=== PATIENT | male | born 1930 | race Caucasian/White ===

== ENCOUNTER 2016-08-29 09:08 | Outpatient (CLI) | payer MEDICARE, OTHER ==
[2015-11-28 15:20] VITALS: BP 146/78
== END 2016-08-29 09:10 ==
LOC: LAB 09:08
PROVIDERS: ATTEND Internal Medicine
DX: E11.9 Type 2 diabetes mellitus without complications (principal)
CPT/HCPCS: 83036

== ENCOUNTER 2016-08-30 09:24 | Emergency (ER) | payer MEDICARE, OTHER ==
[2016-08-30] MEDS ORDERED: OXYMETAZOLINE HCL 0.05% NASAL SPRAY NS ONE (10:02)
--- NOTE | 2016-08-30 10:20 | ED Physician Documentation ---
Epistaxis - HISTORIAN Historian: patient, spouse - HPI Stated Complaint: nose bleed Chief Complaint: Epistaxis Additional Information: epistaxis onset yest pm-never heavy but intermittenly persistent-very minimal now. has hx of blood dyscrasia-dx uncertain-no massive bleedindg ever - no gi bleed. Onset: days ago (yest pm intermittent - slight) Timing: still present, better Location: left Severity: mild Associated Symptoms: denies: recent injury, recent illness Further Comments: yes (blood dyscrasia) - ROS MS/SKIN/LYMPH: other (some bruising) EYES/ENT: none GI/: denies: black stool, problems urinating CVS/RESP: chest pain, difficulty breathing NEURO/PSYCH: denies: dizziness, anxiety - PAST HX Past History: occasional nosebleeds, hypertension, other (un dx blood dyscrasia) Allergies/Adverse Reactions: Allergies Allergy/AdvReac Type Severity Reaction Status Date / Time Penicillins Allergy Verified 08/30/16 09:45 Sulfa (Sulfonamide Allergy Verified 08/30/16 09:45 Antibiotics) Home Medications: Ambulatory Orders Medication Instructions Recorded Acetaminophen [Tylenol] 650 mg PO PRN PRN 11/28/15 Famotidine [Famotidine] 40 mg PO AM 11/28/15 Finasteride [Finasteride] 5 mg PO DAILY 11/28/15 Folic Acid [Folvite] 1 mg PO DAILY 11/28/15 Insulin Aspart [Novolog Flexpen] 2 unit SQ TID 11/28/15 Insulin Glargine,Hum.rec.anlog 11 units SQ DAILY 11/28/15 [Lantus Solostar] Levothyroxine Sodium [Synthroid] 112 mcg PO DAILY 11/28/15 Lisinopril [Lisinopril] 5 mg PO DAILY 11/28/15 Metformin HCl [Glucophage] 1,000 mg PO BID 11/28/15 Multivitamin [Tab-A-Laura] 1 each PO DAILY 11/28/15 Tamsulosin HCl [Tamsulosin HCl] 0.4 mg PO DAILY 11/28/15 - SOCIAL HX Smoking History: non-smoker Alcohol Use: none Drug Use: none - FAMILY HX Family History: No - VITAL SIGNS Vital Signs: Vital Signs Temp Pulse Resp BP Pulse Ox 84 16 163/59 100 08/30/16 09:33 08/30/16 09:33 08/30/16 09:33 08/30/16 09:33 - REVIEWED ASSESSMENTS Nursing Assessment Reviewed: Yes Vitals Reviewed: Yes ED Results Lab/Radiology - Orders Orders: ED Orders Category Date Time Status BMP Routine Lab 08/30/16 Ordered CBC/PLATELET/DIFF Routine Lab 08/30/16 Ordered PT-INR Routine Lab 08/30/16 Ordered PTT Routine Lab 08/30/16 Ordered Oxymetazoline HCl [Afrin 0.05%] Med 08/30/16 10:02 Discontinued 30 spray NS .STK-MED ONE Epistaxis Physical Exam - EXAM General Appearance: mild distress. No: anxious Nose: nml inspection. No: mucosa nml (sl red w/kiesselbachs plexus bleed - clot att w/very min bleeding if at all at present) Head/Neck: atraumatic Eyes/Ears: eyes nml inspection Mouth: lips nml, gums nml, pharynx nml Neuro/Psych: oriented x3, neuro intact, mood/affect nml. No: motor loss, sensory loss, depressed mood/affect Respiratory: no resp distress, chest non-tender, breath sounds normal CVS: reg rate & rhythm, heart sounds normal Abdomen: non-tender. No: swelling Skin: nml color, no skin rash, other (some eccymosis eg playback operator). No: pallor , cyanosis, skin rash, ecchymosis, petechiae Discharge Clincal Impression: Epistaxis, recurrent Referrals: Mark Sidhu MD [Primary Care Provider] - 2 Days Home Medications: Ambulatory Orders Acetaminophen [Tylenol] 650 mg PO PRN PRN 11/28/15 Famotidine [Famotidine] 40 mg PO AM 11/28/15 Finasteride [Finasteride] 5 mg PO DAILY 11/28/15 Folic Acid [Folvite] 1 mg PO DAILY 11/28/15 Insulin Aspart [Novolog Flexpen] 2 unit SQ TID 11/28/15 Insulin Glargine,Hum.rec.anlog [Lantus Solostar] 11 units SQ DAILY 11/28/15 Levothyroxine Sodium [Synthroid] 112 mcg PO DAILY 11/28/15 Lisinopril [Lisinopril] 5 mg PO DAILY 11/28/15 Metformin HCl [Glucophage] 1,000 mg PO BID 11/28/15 Multivitamin [Tab-A-Laura] 1 each PO DAILY 11/28/15 Tamsulosin HCl [Tamsulosin HCl] 0.4 mg PO DAILY 11/28/15 Comments: lab to pt/ to give to hematologists sunday Condition: Good Disposition: HOME, SELF-CARE Decision to Admit: NO Decision Time: 11:27
[2016-08-30 10:36] LABS: BASOPHILS % 0.4 (0.0-1.5); EOSINOPHILS % 0.8 % (0.0-6.8); LYMPHOCYTES # 1.6 # k/uL (0.6-4.0); MEAN CORPUSCULAR HEMOGLOBIN 23.1 pg (28.0-34.0); MONOCYTES # 0.2 # k/uL (0.0-0.9); MONOCYTES % 1.8 % (0.0-11.0); NEUTROPHILS # 8.4 # k/uL (1.4-7.7)
[2016-08-30 10:43] LABS: eGFR (African) > 60; eGFR (Non-African) > 60
[2016-08-30] MEDS: OXYMETAZOLINE HCL 0.05% NASAL SPRAY NS ONE (11:37)
[2016-08-30 11:46] VITALS: BP 132/45
== END 2016-08-30 11:30 | disposition home or self-care (01) ==
LOC: ED 09:24
DX: R04.0 Epistaxis (principal); I10 Essential (primary) hypertension; D75.9 Disease of blood and blood-forming organs, unspecified
CPT/HCPCS: 80048; 85025; 85610; 85730; 99283

== ENCOUNTER 2016-10-25 09:09 | Outpatient (CLI) | payer MEDICARE, OTHER | END 2016-10-25 09:15 | LOC: POD 09:09 | PROVIDERS: ATTEND Podiatrist Public Medicine | DX: E11.9 Type 2 diabetes mellitus without complications (principal); B35.1 Tinea unguium; L60.0 Ingrowing nail; M79.674 Pain in right toe(s); M79.675 Pain in left toe(s) | CPT/HCPCS: 11721; G0463 ==

== ENCOUNTER 2016-11-14 17:43 | Emergency (ER) | payer MEDICARE, OTHER ==
--- NOTE | 2016-11-14 18:16 | ED Physician Documentation ---
Epistaxis - HISTORIAN Historian: patient - HPI Stated Complaint: Epistaxis Chief Complaint: Epistaxis Onset: hours (started 1300 today) Timing: still present, better Location: right Severity: mild Associated Symptoms: denies: fever, chills Further Comments: yes (Has had previous problems with nose bleeds, last one was several months ago. Has used Afrin and nasal compression with home mad packing. Has a history of thrombocytopenia, platelet count in the 20,000s) - ROS MS/SKIN/LYMPH: denies: excessive bruising, bleeding from gums, bleeding from GI NEURO/PSYCH: denies: dizziness, anxiety - PAST HX Past History: other (dm, mitral valve problem) Immunizations: referred to PCP Allergies/Adverse Reactions: Allergies Allergy/AdvReac Type Severity Reaction Status Date / Time Penicillins Allergy Verified 11/14/16 17:47 Sulfa (Sulfonamide Allergy Verified 11/14/16 17:47 Antibiotics) Home Medications: Ambulatory Orders Medication Instructions Recorded Acetaminophen [Tylenol] 650 mg PO PRN PRN 11/28/15 Famotidine [Famotidine] 40 mg PO AM 11/28/15 Finasteride [Finasteride] 5 mg PO DAILY 11/28/15 Folic Acid [Folvite] 1 mg PO DAILY 11/28/15 Insulin Aspart [Novolog Flexpen] 2 unit SQ TID 11/28/15 Insulin Glargine,Hum.rec.anlog 11 units SQ DAILY 11/28/15 [Lantus Solostar] Levothyroxine Sodium [Synthroid] 112 mcg PO DAILY 11/28/15 Lisinopril [Lisinopril] 5 mg PO DAILY 11/28/15 Metformin HCl [Glucophage] 1,000 mg PO BID 11/28/15 Multivitamin [Tab-A-Laura] 1 each PO DAILY 11/28/15 Tamsulosin HCl [Tamsulosin HCl] 0.4 mg PO DAILY 11/28/15 - SOCIAL HX Smoking History: non-smoker Alcohol Use: none Drug Use: none - FAMILY HX Family History: Yes - VITAL SIGNS Vital Signs: Vital Signs Temp Pulse Resp BP Pulse Ox 87 18 177/73 98 11/14/16 17:45 11/14/16 17:45 11/14/16 17:45 11/14/16 17:45 - REVIEWED ASSESSMENTS Nursing Assessment Reviewed: Yes Vitals Reviewed: Yes Epistaxis Physical Exam - EXAM General Appearance: no acute distress, alert Nose: no active bleeding, fresh clots (R) (anterior septal area) Mouth: lips nml, pharynx nml Neuro/Psych: oriented x3, neuro intact, mood/affect nml Respiratory: no resp distress, chest non-tender, breath sounds normal. No: wheezes, rales, rhonchi CVS: reg rate & rhythm, heart sounds normal, equal pulses Abdomen: non-tender Skin: nml color, no skin rash Discharge Clincal Impression: Anterior epistaxis, Thrombocytopenia Additional Instructions: If bleeding reoccurs to put pressure on the anterior nose for 30 minutes before letting go to seen if the bleeding has stopped. Home Medications: Ambulatory Orders Acetaminophen [Tylenol] 650 mg PO PRN PRN 11/28/15 Famotidine [Famotidine] 40 mg PO AM 11/28/15 Finasteride [Finasteride] 5 mg PO DAILY 11/28/15 Folic Acid [Folvite] 1 mg PO DAILY 11/28/15 Insulin Aspart [Novolog Flexpen] 2 unit SQ TID 11/28/15 Insulin Glargine,Hum.rec.anlog [Lantus Solostar] 11 units SQ DAILY 11/28/15 Levothyroxine Sodium [Synthroid] 112 mcg PO DAILY 11/28/15 Lisinopril [Lisinopril] 5 mg PO DAILY 11/28/15 Metformin HCl [Glucophage] 1,000 mg PO BID 11/28/15 Multivitamin [Tab-A-Laura] 1 each PO DAILY 11/28/15 Tamsulosin HCl [Tamsulosin HCl] 0.4 mg PO DAILY 11/28/15 Condition: Stable Disposition: 01 HOME, SELF-CARE Decision to Admit: NO Date of Decison to Admit: 11/14/16 Decision Time: 18:28
[2016-11-14 18:57] VITALS: BP 152/61
[2016-11-14] MEDS ORDERED: OXYMETAZOLINE HCL 0.05% NASAL SPRAY NS ONE ×2 (19:12→19:13)
== END 2016-11-14 18:56 | disposition home or self-care (01) ==
LOC: ED 17:43
DX: R04.0 Epistaxis (principal); D69.6 Thrombocytopenia, unspecified
CPT/HCPCS: 99283

== ENCOUNTER 2017-02-14 08:38 | Outpatient (CLI) | payer MEDICARE, OTHER | END 2017-02-14 08:40 | LOC: POD 08:38 | PROVIDERS: ATTEND Podiatrist Public Medicine | DX: B35.1 Tinea unguium (principal); E11.9 Type 2 diabetes mellitus without complications; L60.0 Ingrowing nail; M79.675 Pain in left toe(s); M79.674 Pain in right toe(s) | CPT/HCPCS: 11721; G0463 ==

== ENCOUNTER 2017-03-12 08:35 | Outpatient (CLI) | payer MEDICARE, OTHER | END 2017-03-12 08:40 | LOC: LAB 08:35 | PROVIDERS: ATTEND Internal Medicine | DX: E11.40 Type 2 diabetes mellitus with diabetic neuropathy, unspecified (principal) | CPT/HCPCS: 36415; 83036 ==

== ENCOUNTER 2017-05-16 08:47 | Outpatient (CLI) | payer MEDICARE, OTHER | END 2017-05-16 08:50 | LOC: POD 08:47 | PROVIDERS: ATTEND Podiatrist Public Medicine | DX: B35.1 Tinea unguium (principal); M79.674 Pain in right toe(s); L60.0 Ingrowing nail; M79.675 Pain in left toe(s); E11.9 Type 2 diabetes mellitus without complications | CPT/HCPCS: 11721; G0463 ==

== ENCOUNTER 2017-05-21 09:15 | Outpatient (CLI) | payer MEDICARE, OTHER | END 2017-05-21 09:16 | LOC: LAB 09:15 | PROVIDERS: ATTEND Internal Medicine | DX: E11.9 Type 2 diabetes mellitus without complications (principal) | CPT/HCPCS: 36415; 83036 ==

== ENCOUNTER 2017-08-06 09:36 | Outpatient (CLI) | payer MEDICARE, OTHER ==
[2017-08-06 09:56] LABS: MEAN CORPUSCULAR HEMOGLOBIN 27.7 pg (28.0-34.0); MEAN CORPUSCULAR VOLUME 85.3 fl (80.0-100.0)
[2017-08-06 10:33] LABS: SEGMENTED NEUTROPHILS % 77 % (39-79)
[2017-08-06 10:34] LABS: ANISOCYTOSIS 1+ (NEGATIVE); BASOPHILS % 2 % (0-2); EOSINOPHILS % 2 % (0-7)
[2017-08-06 10:35] LABS: HYPOCHROMASIA 1+ (NEGATIVE)
[2017-08-06 10:38] LABS: PLT EST. EST. AGREES W/PLT CT
== END 2017-08-06 09:37 ==
LOC: LAB 09:36
PROVIDERS: ATTEND Internal Medicine
DX: I34.8 Other nonrheumatic mitral valve disorders (principal); M89.9 Disorder of bone, unspecified
CPT/HCPCS: 36415; 85025

== ENCOUNTER 2017-08-29 08:23 | Outpatient (CLI) | payer MEDICARE, OTHER | END 2017-08-29 08:24 | LOC: POD 08:23 | PROVIDERS: ATTEND Podiatrist Public Medicine | DX: E11.9 Type 2 diabetes mellitus without complications (principal); B35.1 Tinea unguium; L60.0 Ingrowing nail; M79.674 Pain in right toe(s); M79.675 Pain in left toe(s) | CPT/HCPCS: 11721; G0463 ==

== ENCOUNTER 2017-09-06 19:35 | Emergency (ER) | payer MEDICARE, OTHER ==
[2017-09-06] MEDS ORDERED: PHENYLEPHRINE NS ONE (19:38)
--- NOTE | 2017-09-06 19:53 | ED Physician Documentation ---
Epistaxis - HISTORIAN Historian: patient, spouse, child - HPI Stated Complaint: NOSEBLEED Chief Complaint: Epistaxis Additional Information: recurrent nosebleed this time [id number] rt side. has recurrent uses neosynephrine at home but this time not effective=uses on cotton pledget.. has chronic myoprolipherative disease w/lo platelets Timing: still present Location: right Severity: mild Associated Symptoms: denies: recent injury, recent illness, fever, chills - ROS MS/SKIN/LYMPH: denies: excessive bruising, bleeding from gums, bleeding from GI EYES/ENT: denies: problems with vision GI/: denies: black stool CVS/RESP: denies: chest pain, difficulty breathing NEURO/PSYCH: denies: dizziness, anxiety - PAST HX Past History: frequent nosebleeds Other History: diabetes Type 2, hypertension, other (hypothryoid mitral valve disease gerd bph ) Allergies/Adverse Reactions: Allergies Allergy/AdvReac Type Severity Reaction Status Date / Time Penicillins Allergy Verified 09/06/17 19:48 Sulfa (Sulfonamide Allergy Verified 09/06/17 19:48 Antibiotics) Home Medications: Ambulatory Orders Medication Instructions Recorded Acetaminophen [Tylenol] 650 mg PO PRN PRN 11/28/15 Famotidine [Famotidine] 40 mg PO AM 11/28/15 Finasteride [Finasteride] 5 mg PO DAILY 11/28/15 Folic Acid [Folvite] 1 mg PO DAILY 11/28/15 Insulin Aspart [Novolog Flexpen] 2 unit SQ TID 11/28/15 Insulin Glargine,Hum.rec.anlog 11 units SQ DAILY 11/28/15 [Lantus Solostar] Levothyroxine Sodium [Synthroid] 112 mcg PO DAILY 11/28/15 Lisinopril [Lisinopril] 5 mg PO DAILY 11/28/15 Metformin HCl [Glucophage] 1,000 mg PO BID 11/28/15 Multivitamin [Tab-A-Laura] 1 each PO DAILY 11/28/15 Tamsulosin HCl [Tamsulosin HCl] 0.4 mg PO DAILY 11/28/15 Ropinirole HCl [Requip] 0.5 mg PO HS 09/06/17 Tramadol HCl [Ultram] 25 mg PO QID PRN 09/06/17 - SOCIAL HX Smoking History: non-smoker Alcohol Use: none Drug Use: none - FAMILY HX Family History: No - VITAL SIGNS Vital Signs: Vital Signs Temp Pulse Resp BP Pulse Ox 98.3 F 85 18 186/76 99 09/06/17 19:35 09/06/17 19:35 09/06/17 19:35 09/06/17 19:35 09/06/17 19:35 - REVIEWED ASSESSMENTS Nursing Assessment Reviewed: Yes Vitals Reviewed: Yes ED Results Lab/Radiology - Orders Orders: ED Orders Category Date Time Status CBC/PLATELET/DIFF Routine Lab 09/06/17 Ordered CMP Routine Lab 09/06/17 Ordered PT-INR Routine Lab 09/06/17 Ordered Phenylephrine HCl [Ismael-Synephrine] Med 09/06/17 19:38 Discontinued 15 ml NS .STK-MED ONE Epistaxis Physical Exam - EXAM General Appearance: mild distress Nose: nml inspection, active bleeding (R). No: mucosa nml, no active bleeding Head/Neck: atraumatic, thyroid nml. No: facial swelling, erythema Mouth: lips nml, gums nml Neuro/Psych: oriented x3, neuro intact, mood/affect nml Respiratory: no resp distress, chest non-tender, breath sounds normal CVS: reg rate & rhythm, heart sounds normal Abdomen: non-tender. No: swelling Skin: no skin rash. No: nml color, pallor, cyanosis, petechiae Discharge Clincal Impression: epistaxis, CHRONIC MYELOPROLIFERATIVE, ddiabetes htn , [id number] Referrals: Mark Sidhu MD [Primary Care Provider] - 2 Days Comments: epistaxis controlled w neosyhnephrin pack - tape pack in place Condition: Good Disposition: 01 HOME, SELF-CARE Decision to Admit: NO Decision Time: 21:44
[2017-09-06 20:22] LABS: MEAN CORPUSCULAR HEMOGLOBIN 26.7 pg (28.0-34.0); MEAN CORPUSCULAR VOLUME 84.7 fl (80.0-100.0); eGFR (African) > 60; eGFR (Non-African) > 60
[2017-09-06 21:56] VITALS: BP 152/53
[2017-09-07 08:48] LABS: BASOPHILS % 3 % (0-2); MONOCYTES % 4 % (0-11); SEGMENTED NEUTROPHILS % 79 % (39-79)
== END 2017-09-06 21:35 | disposition home or self-care (01) ==
LOC: ED 19:35
DX: R04.0 Epistaxis (principal); D47.1 Chronic myeloproliferative disease; E11.9 Type 2 diabetes mellitus without complications; I10 Essential (primary) hypertension; E03.9 Hypothyroidism, unspecified
CPT/HCPCS: 80053; 85025; 85610; 99282; 99283

== ENCOUNTER 2017-09-25 08:58 | Outpatient (CLI) | payer MEDICARE, OTHER ==
[2017-09-25 09:18] LABS: MEAN CORPUSCULAR HEMOGLOBIN 27.5 pg (28.0-34.0); MEAN CORPUSCULAR VOLUME 90.5 fl (80.0-100.0)
[2017-09-25 09:53] LABS: BASOPHILS % 2 % (0-2); HYPOCHROMASIA 1+ (NEGATIVE); MONOCYTES % 1 % (0-11); SEGMENTED NEUTROPHILS % 66 % (39-79)
[2017-09-25 09:54] LABS: ANISOCYTOSIS 1+ (NEGATIVE)
== END 2017-09-25 09:00 ==
LOC: OUT 08:58
PROVIDERS: ATTEND Internal Medicine
DX: E11.40 Type 2 diabetes mellitus with diabetic neuropathy, unspecified (principal); I34.8 Other nonrheumatic mitral valve disorders; D75.81 Myelofibrosis
CPT/HCPCS: 36415; 83036; 85025

== ENCOUNTER 2017-12-26 10:42 | Outpatient (CLI) | payer MEDICARE, OTHER | END 2017-12-26 10:43 | LOC: POD 10:42 | PROVIDERS: ATTEND Podiatrist Public Medicine | DX: E11.9 Type 2 diabetes mellitus without complications (principal); L60.0 Ingrowing nail; M79.674 Pain in right toe(s); M79.675 Pain in left toe(s) | CPT/HCPCS: 11721; G0463 ==

== ENCOUNTER 2018-01-29 10:07 | Outpatient (CLI) | payer MEDICARE, OTHER | END 2018-01-29 10:10 | LOC: LAB 10:07 | PROVIDERS: ATTEND Internal Medicine | DX: E11.9 Type 2 diabetes mellitus without complications (principal); E03.9 Hypothyroidism, unspecified; N40.0 Benign prostatic hyperplasia without lower urinary tract symptoms; D47.1 Chronic myeloproliferative disease; E29.1 Testicular hypofunction | CPT/HCPCS: 36415; 83036; 84403; 84439; 84443 ==

== ENCOUNTER 2018-02-11 10:04 | Emergency (ER) | payer MEDICARE, OTHER ==
[2018-02-11] MEDS ORDERED: OXYMETAZOLINE HCL 0.05% NASAL SPRAY NS ONE (11:03)
[2018-02-11 11:18] LABS: MEAN CORPUSCULAR HEMOGLOBIN 26.2 pg (28.0-34.0); MEAN CORPUSCULAR VOLUME 82.7 fl (80.0-100.0)
[2018-02-11 12:01] LABS: ANISOCYTOSIS 1+ (NEGATIVE); BASOPHILS % 2 % (0-2); HYPOCHROMASIA 1+ (NEGATIVE); MONOCYTES % 6 % (0-11); SEGMENTED NEUTROPHILS % 77 % (39-79)
[2018-02-11 13:11] LABS: eGFR (African) > 60; eGFR (Non-African) > 60
--- NOTE | 2018-02-11 13:24 | ED Physician Documentation ---
Epistaxis - HISTORIAN Historian: patient, spouse, child - HPI Chief Complaint: Nosebleed Onset: days ago (4) Timing: intermittent Location: bilateral Severity: moderate Further Comments: yes (87 year old male patient presents with complaint of intermittent nose bleed for the past 4 days. Has been using afrin at home with no improvement. Reports history of thrombocytopenia; monitored by Dr Sidhu, has oncologist - Dr Eric, cannot recall last time he was seen by oncology. "Dr Sidhu watches it".) - ROS MS/SKIN/LYMPH: excessive bruising, bleeding from gums. denies: bleeding from GI , bleeding from , swollen glands, joint pain EYES/ENT: none GI/: denies: black stool, problems urinating CVS/RESP: denies: chest pain, difficulty breathing NEURO/PSYCH: denies: dizziness, anxiety, depression - PAST HX Past History: previous nosebleeds, hypertension Other History: diabetes Type 2, other (BPH, Thrombocytopenia, MDS, Chronic anemia) Allergies/Adverse Reactions: Allergies Allergy/AdvReac Type Severity Reaction Status Date / Time Penicillins Allergy Verified 02/11/18 11:38 Sulfa (Sulfonamide Allergy Verified 02/11/18 11:38 Antibiotics) Home Medications: Ambulatory Orders Medication Instructions Recorded Acetaminophen [Tylenol] 650 mg PO PRN PRN 11/28/15 Famotidine [Famotidine] 40 mg PO AM 11/28/15 Finasteride [Finasteride] 5 mg PO DAILY 11/28/15 Folic Acid [Folvite] 1 mg PO DAILY 11/28/15 Insulin Aspart [Novolog Flexpen] 2 unit SQ TID 11/28/15 Insulin Glargine,Hum.rec.anlog 11 units SQ DAILY 11/28/15 [Lantus Solostar] Levothyroxine Sodium [Synthroid] 112 mcg PO DAILY 11/28/15 Lisinopril [Lisinopril] 5 mg PO DAILY 11/28/15 Metformin HCl [Glucophage] 1,000 mg PO BID 11/28/15 Multivitamin [Tab-A-Laura] 1 each PO DAILY 11/28/15 Tamsulosin HCl [Tamsulosin HCl] 0.4 mg PO DAILY 11/28/15 Ropinirole HCl [Requip] 0.5 mg PO HS 09/06/17 Tramadol HCl [Ultram] 25 mg PO QID PRN 09/06/17 - SOCIAL HX Smoking History: non-smoker - FAMILY HX Family History: No - VITAL SIGNS Vital Signs: Vital Signs Temp Pulse Resp BP Pulse Ox 152/53 09/06/17 21:35 - REVIEWED ASSESSMENTS Nursing Assessment Reviewed: Yes Vitals Reviewed: Yes Progress - Progress Progress: Patient with constant scant bright red nasal drainage from bilateral nares. [address] Sidhu [address] Sidhu [address] Santos, admission nurse coordinator for Dr Sidhu, recommended consult with Dr Eric. [address] Argueta; follow up appointment made for tomorrow in office with Dr Gibson at 3pm. Will pack bilateral nares and leave in place until follow up. 1320 Bilateral nares packed with Rhino Rockets. Patient tolerated well. Offered pain medication - refused at present. Reviewed discharge instructions. Verbalized understanding. Copy of lab provided. ED Results Lab/Radiology - Lab Results Lab Results: Lab Results 02/11/18 02/11/18 11:10 11:10 WBC 12.70 K/ul H K/ul (4.00-12.00) RBC 3.19 M/ul L M/ul (3.90-5.20) Hgb 8.4 g/dL L g/dL (12.0-18.0) Hct 26.4 % L % (37.0-53.0) MCV 82.7 fl fl (80.0-100.0) MCH 26.2 pg L pg (28.0-34.0) MCHC 31.7 g/dL g/dL (30.0-36.0) RDW 18.7 % H % (11.3-14.3) Plt Count 17 K/mm3 L* K/mm3 (130-400) Seg Neutrophils % 77 % % (39-79) Lymphocytes % 15 % L % (16-50) Monocytes % 6 % % (0-11) Basophils % 2 % % (0-2) Plt Morphology Comment Normal (NORMAL) Polychromasia 1+ H (NEGATIVE) Hypochromasia 1+ H (NEGATIVE) Anisocytosis 1+ H (NEGATIVE) RBC Morph Comment Abnormal H (NORMAL) Sodium 133 mmol/L L mmol/L (136-145) Potassium 4.4 mmol/L mmol/L (3.5-5.1) Chloride 99 mmol/L mmol/L (98-107) Carbon Dioxide 25 mmol/L mmol/L (22-30) BUN 21 mg/dL H mg/dL (9-20) Creatinine 0.90 mg/dL mg/dL (0.66-1.25) Est GFR ( Amer) > 60 (60 - ) Est GFR (Non-Af Amer) > 60 (60 - ) Glucose 312 mg/dL H mg/dL (74-106) Calcium 9.0 mg/dL mg/dL (8.4-10.2) - Orders Orders: ED Orders Category Date Time Status BMP [BMP] Stat Lab 02/11/18 11:10 Completed CBC/PLATELET/DIFF Stat Lab 02/11/18 11:10 Completed Oxymetazoline HCl [Afrin 0.05%] Med 02/11/18 11:03 Discontinued 2 spray NS NOW ONE Epistaxis Physical Exam - EXAM General Appearance: mild distress Nose: moderate (bilateral nares with multiple oozing areas in anterior nares) Head/Neck: atraumatic, thyroid nml Eyes/Ears: eyes nml inspection, PERRL, TM nml Mouth: lips nml, gums nml, pharynx nml Neuro/Psych: oriented x3, neuro intact, mood/affect nml, CN's nml as tested Respiratory: no resp distress, chest non-tender, breath sounds normal CVS: reg rate & rhythm, heart sounds normal, equal pulses, no murmur, no gallop , PMI nml, no JVD, no friction rub, 24 Abdomen: non-tender, no organomegaly Skin: no skin rash, pallor Discharge Clincal Impression: Anterior epistaxis, Thrombocytopenia Referrals: Mark Sidhu MD [Primary Care Provider] - 2 Days Additional Instructions: Leave packing in place Follow up tomorrow at Dr Eric's office at 3:00pm Return to Er if you cannot tolerate the packing or if you are swallowing blood. Condition: Stable Disposition: 01 HOME, SELF-CARE Decision to Admit: NO Decision Time: 13:22
[2018-02-11 13:47] VITALS: BP 149/57
== END 2018-02-11 13:45 | disposition home or self-care (01) ==
LOC: ED 10:04
DX: R04.0 Epistaxis (principal); D69.6 Thrombocytopenia, unspecified
CPT/HCPCS: 36415; 80048; 85025; 99283

== ENCOUNTER 2018-02-12 01:57 | Emergency (ER) | payer MEDICARE, OTHER ==
[2018-02-12 02:37] LABS: MEAN CORPUSCULAR HEMOGLOBIN 26.6 pg (28.0-34.0); MEAN CORPUSCULAR VOLUME 84.5 fl (80.0-100.0)
--- NOTE | 2018-02-12 02:39 | ED Physician Documentation ---
Epistaxis - HISTORIAN Historian: patient, child - HPI Stated Complaint: Nose Bleed Chief Complaint: Epistaxis Onset: days ago (4 days) Timing: intermittent Location: bilateral Severity: other (right side worse tonight) Further Comments: yes (87 year old male patient awoke with increased bleeding from right nare. Pillow and undershirt were soaked with blood. Patient was seen this morning at 1100 with complaints of intermittent nose bleed for the past 4 days; using afrin through the weekend with no improvement. Consult with Dr Santos (PCP) and Dr Argueta (onc) today. Nares coated with antibiotic ointment and packed bilaterally. Appointment with Dr Eric for 3pm today.) - ROS MS/SKIN/LYMPH: excessive bruising. denies: bleeding from gums, bleeding from GI , bleeding from , swollen glands, joint pain EYES/ENT: none GI/: denies: black stool, problems urinating CVS/RESP: denies: chest pain, difficulty breathing NEURO/PSYCH: denies: dizziness, anxiety, depression - PAST HX Past History: hypertension Other History: diabetes Type 2, other (BPH, MDS-thrombocytopenia, chronic anemia ) Allergies/Adverse Reactions: Allergies Allergy/AdvReac Type Severity Reaction Status Date / Time Penicillins Allergy Verified 02/12/18 02:25 Sulfa (Sulfonamide Allergy Verified 02/12/18 02:25 Antibiotics) Home Medications: Ambulatory Orders Medication Instructions Recorded Acetaminophen [Tylenol] 650 mg PO PRN PRN 11/28/15 Famotidine [Famotidine] 40 mg PO AM 11/28/15 Finasteride [Finasteride] 5 mg PO DAILY 11/28/15 Folic Acid [Folvite] 1 mg PO DAILY 11/28/15 Insulin Aspart [Novolog Flexpen] 2 unit SQ TID 11/28/15 Insulin Glargine,Hum.rec.anlog 11 units SQ DAILY 11/28/15 [Lantus Solostar] Levothyroxine Sodium [Synthroid] 112 mcg PO DAILY 11/28/15 Lisinopril [Lisinopril] 5 mg PO DAILY 11/28/15 Metformin HCl [Glucophage] 1,000 mg PO BID 11/28/15 Multivitamin [Tab-A-Laura] 1 each PO DAILY 11/28/15 Tamsulosin HCl [Tamsulosin HCl] 0.4 mg PO DAILY 11/28/15 Ropinirole HCl [Requip] 0.5 mg PO HS 09/06/17 Tramadol HCl [Ultram] 25 mg PO QID PRN 09/06/17 - SOCIAL HX Smoking History: non-smoker - FAMILY HX Family History: No - VITAL SIGNS Vital Signs: Vital Signs Temp Pulse Resp BP Pulse Ox 97 F L 78 20 156/68 99 02/12/18 01:57 02/12/18 01:57 02/12/18 01:57 02/12/18 01:57 02/12/18 01:57 - REVIEWED ASSESSMENTS Nursing Assessment Reviewed: Yes Vitals Reviewed: Yes Progress - Progress Progress: Discussed treatment options with patient and daughter. Patient would like to go to [facility]. Cannot tolerate packing and continued ooze. Removed packing from right side - constant ooze; minimal bleeding on packing. Coated inside of right nare with antibiotic ointment, gently replaced rhino rocket. Call to [place] - case discussed with pulp house supervisor, recommend consult with ENT. Spoke with Dr Villagran; recommended transfuse platelets. Call back to [place] - discussed ENT recommendation; consult with hospitalist. Patient accepted by Dr. Ellsworth. Patient would like to go POV, VS stable, right nare with scant ooze. ED Results Lab/Radiology - Orders Orders: ED Orders Category Date Time Status CBC/PLATELET/DIFF Stat Lab 02/12/18 02:30 Received Epistaxis Physical Exam - EXAM General Appearance: mild distress Nose: active bleeding (R), minimal (constant ooze) Head/Neck: atraumatic, thyroid nml Eyes/Ears: eyes nml inspection Mouth: lips nml, gums nml, pharynx nml, bleeding from nasopharynx (dried blood in mouth) Neuro/Psych: oriented x3, neuro intact, mood/affect nml, CN's nml as tested Respiratory: no resp distress, chest non-tender, breath sounds normal CVS: reg rate & rhythm, heart sounds normal, equal pulses, no murmur, no gallop , PMI nml, no JVD, no friction rub, 24 Abdomen: non-tender, no organomegaly Skin: no skin rash, pallor, ecchymosis (posterior right thigh ) Discharge Clincal Impression: Epistaxis, recurrent, Thrombocytopenia Condition: Fair Disposition: 02 XFER SHT-TRM HOSP Decision to Admit: NO Decision Time: 02:52
[2018-02-12 03:03] VITALS: BP 144/59
== END 2018-02-12 03:00 | disposition short-term general hospital (02) ==
LOC: ED 01:57
DX: R04.0 Epistaxis (principal); D69.59 Other secondary thrombocytopenia
CPT/HCPCS: 85025; 99284

== ENCOUNTER 2018-03-29 09:53 | Outpatient (CLI) | payer MEDICARE, OTHER ==
[2018-03-29 22:51] LABS: MCH. 28.2 pg (28.0-34.0); MCV 90.6 fL (80.0-100.0)
== END 2018-03-29 09:54 ==
LOC: LAB 09:53
PROVIDERS: ATTEND Internal Medicine
DX: E03.9 Hypothyroidism, unspecified (principal); N40.0 Benign prostatic hyperplasia without lower urinary tract symptoms; I34.8 Other nonrheumatic mitral valve disorders
CPT/HCPCS: 36415; 84403; 84439; 84443; 85025

== ENCOUNTER 2018-04-10 14:48 | Inpatient (IN) | payer MEDICARE, OTHER ==
[2018-04-10] MEDS ORDERED: FOLIC ACID 1 MG TABLET PO SCH (17:00)
[2018-04-10 17:09] VITALS: BMI 20.3
[2018-04-10] MEDS: INSULIN LISPRO 100 UNIT/ML 3ML VIAL SQ SCH (17:57)
[2018-04-10] MEDS: rOPINIRole HCL 1 MG TABLET PO SCH (20:07)
[2018-04-10] MEDS: CALCIUM CARB 500 MG TAB.CHEW PO SCH (20:07)
[2018-04-11] MEDS ORDERED: DILTIAZEM HCL 120 MG CAP.ER.24H ONE (00:19)
[2018-04-11] MEDS ORDERED: predniSONE 10 MG TABLET PO ONE (00:20)
[2018-04-11] MEDS ORDERED: FUROSEMIDE 20 MG TABLET PO ONE (00:21)
[2018-04-11] MEDS ORDERED: FOLIC ACID 1 MG TABLET PO ONE (00:21)
[2018-04-11] MEDS ORDERED: FINASTERIDE 5 MG TABLET PO ONE (00:21)
[2018-04-11] MEDS ORDERED: CHOLECALCIFEROL (VIT D3) 1,000 UNIT TABLET PO ONE (00:22)
[2018-04-11] MEDS: LEVOTHYROXINE SODIUM 50 MCG TABLET PO SCH (05:59)
[2018-04-11] MEDS: FAMOTIDINE 20 MG TABLET PO SCH (05:59)
[2018-04-11] MEDS: traMADol HCL 50 MG TABLET PO PRN ×2 (06:21→16:44)
[2018-04-11] MEDS ORDERED: INSULIN ASPART 2 UNIT SQ SCH (07:30)
--- NOTE | 2018-04-11 07:56 | History and Physical Report ---
History of Present Illnes - History of Present Illness Reason for Visit: Weakness History of Present Illness: Patient admitted to [facility] after a 2nd fall in 2 weeks at home. He suffered a T12 compression fracture and a mild L2 compression fracture. 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 He has Afib and was noted to have RVR. DR. Sidhu (his PCP) discontinued lisinopril and started a CCB for better rate control in addition to his digoxin. Dr. Eric was involved in his hematology problems. He gave permission for him to be off his Jakafi (trying to build up platelets) while in SNF. 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 Sodium was 128 on admission - resolved after IV fluids. He has been on tramadol and Abbott at home for pain from his 1st fall. Family and therapy felt he was too weak to return home and his is unable to care for him so he is being admitted SNF for endurance training. - Past Medical History Cardiac: AFIB (No anticoagulation due to thrombocytopenia), CAD (EF 70-75% - Hyperdynamic; Stage 2 Diastolic Dysfunction; Severe L atrial enlargement), HTN REED MAKER: Other (RLS) Gastrointestinal: Constipation Heme/Onc: Other (Myeloproliferative disorder/? ITP - Dr. Jones) Renal/: Benign prostatic enlarg. Endocrine: Hypothyroidism - Past Surgical History Past Surgical History: Appendectomy - Past Social History Smoke: Quit (23 y.o.) Occupation: Retired from [employer] Alcohol: None Drugs: None Lives: With Family (), Other (2 daughters and 1 son) - Health Maintenance Health Maintenance: Tetanus, Influenza Vaccine, Pneumococcal Vaccine Influenza Vaccine: Current for this Influenza Season Pneumonia Vaccine: Yes Resuscitation Status: Resusciation Status Resuscitation Status No Compressions/CPR,Do Not Resuscitate Review of Systems - Review of Systems Constitutional: Weakness Eyes: negative: pain ENT: negative: Ear Pain Respiratory: negative: Cough Cardiovascular: negative: Chest Pain Gastrointestinal: Constipation (Stools not working well since being in the hospital.). negative: Nausea, Vomiting, Abdominal Pain Genitourinary: Other Musculoskeletal: Back Pain Skin: Bruising, Other (PICC line pulled today - 15 min to stop bleeding) Neurological: Weakness - Medications/Allergies Allergies/Adverse Reactions: Allergies Allergy/AdvReac Type Severity Reaction Status Date / Time Penicillins Allergy Verified 02/12/18 02:25 Sulfa (Sulfonamide Allergy Verified 02/12/18 02:25 Antibiotics) Home Medications: Home Medications Acetaminophen [Tylenol Extra Strength] 1,000 mg PO Q6H 04/10/18 Current Inpatient Medications: Current Inpatient Medications Calcium Carbonate (Tums) 750 mg PO BID [facility] Last Admin: 04/10/18 20:07 Dose: 750 mg Cholecalciferol (Vitamin D-3) 2,000 unit PO DAILY [facility] Digoxin (Lanoxin) 62.5 mcg PO [id number] [facility] Diltiazem HCl (Cardizem Cd) 120 mg PO DAILY [facility] Famotidine (Pepcid) 40 mg PO 0700 [facility] Last Admin: 04/11/18 05:59 Dose: 40 mg Finasteride (Proscar) 5 mg PO DAILY [facility] Folic Acid (Folvite) 1 mg PO DAILY [facility] Furosemide (Lasix) 20 mg PO DAILY [facility] Insulin Glargine (Basaglar Kwik-Pen) 20 unit SQ QD [facility] Insulin Human Lispro (Humalog) 2 unit SQ CHEMX3 [facility] Last Admin: 04/10/18 17:57 Dose: 2 units Levothyroxine Sodium (Levothyroxine Sodium) 125 mcg PO 0700 [facility] Last Admin: 04/11/18 05:59 Dose: 125 mcg Miscellaneous (Chem Sticks) 1 each MC CHEMQID [facility] Last Admin: 04/10/18 20:10 Dose: 1 each Prednisone (Deltasone) 10 mg PO DAILY [facility] Ropinirole HCl (Requip) 0.25 mg PO HS [facility] Last Admin: 04/10/18 20:07 Dose: 0.25 mg Tamsulosin HCl (Flomax) 0.4 mg PO DAILY [facility] Tramadol HCl (Ultram) 50 mg PO QID PRN PRN Reason: PAIN Last Admin: 04/11/18 06:21 Dose: 50 mg Exam - Exam Vital Signs: Vital Signs (72 hours) 04/10/18 04/10/18 04/10/18 15:29 19:29 21:00 Temperature 98 F 97.8 F Pulse Rate [ 79 87 87 Pulse ox] Respiratory 16 17 17 Rate Blood Pressure 127/63 115/51 [Right Arm] O2 Sat by Pulse 97 98 Oximetry General: Alert, Oriented to Person, Oriented to Place, Oriented to Time, Cooperative, No acute distress HEENT: Atraumatic, PERRLA, EOMI, Mouth Mucous membr. moist/[place], Nose Mucous membr. moist/[place] Neck: Normal Range of Motion Lungs: Clear to auscultation, Normal air movement, Speaks full Sentences Cardiovascular: Irregularly Irregular Abdomen: Normal bowel sounds, Soft, No tenderness Integumentary: Normal Extremities: Other (Extensive bruising on all extremities.) Neurological: Generalized Weakness Psych/Mental Status: Mental status NL, Mood NL, Appropriate Affect, Intact Judgment Assessment/Plan - Assessment/Plan (1) Weakness Status: Acute Current Visit: Yes Plan: Will admit for PT/OT. Unable to do any DVT prophylaxis - anticoagulation will cause very high risk of bleeding and mechanical leaves terrible bruises. (2) Myeloproliferative disorder Status: Chronic Current Visit: No Plan: Continue prednisone and folic acid. Hold Monsterfaki per Dr. Jones orders. (3) Afib Status: Chronic Current Visit: Yes Qualifiers: Atrial fibrillation type: chronic Qualified Code(s): I48.2 - Chronic atrial fibrillation Plan: Stable with good rate control. No CVA prophylaxis. (4) HTN (hypertension) Status: Chronic Current Visit: No Qualifiers: Hypertension type: essential hypertension Qualified Code(s): I10 - Essential (primary) hypertension Plan: Stable (5) Thrombocytopenia Status: Chronic Current Visit: Yes Plan: Watch closely. VTE Assessment - RISK FACTOR SCORE VTE RISK FACTOR SCORES: AGE OVER 60 YEARS - RISK VTE LOW RISK: SCORE OF 1 OR LESS (RISK PROXIMAL DVT 0.4%) NO PROPHYLAXIS NEEDED
[2018-04-11] MEDS: INSULIN LISPRO 100 UNIT/ML 3ML VIAL SQ SCH ×4 (07:58→20:13)
[2018-04-11] MEDS: HYDROcodone /APAP 5/325 1 EACH TABLET PO PRN ×2 (08:05→20:09)
[2018-04-11] MEDS ORDERED: CALCIUM/VIT D 500MG/200IU TABLET PO SCH (09:00)
[2018-04-11] MEDS ORDERED: FAMOTIDINE 40 MG PO SCH (09:00)
[2018-04-11] MEDS ORDERED: LEVOTHYROXINE SODIUM 125 MCG PO SCH (09:00)
[2018-04-11] MEDS ORDERED: INSULIN GLARGINE HUM REC ANLOG 20 UNIT SQ SCH (09:00)
[2018-04-11] MEDS: CALCIUM CARB 500 MG TAB.CHEW PO SCH ×2 (09:01→20:10)
[2018-04-11] MEDS: CHOLECALCIFEROL (VIT D3) 1,000 UNIT TABLET PO SCH (09:01)
[2018-04-11] MEDS: predniSONE 10 MG TABLET PO SCH (09:02)
[2018-04-11] MEDS: DILTIAZEM HCL 120 MG CAP.ER.24H PO SCH (09:02)
[2018-04-11] MEDS: FINASTERIDE 5 MG TABLET PO SCH (09:02)
[2018-04-11] MEDS: TAMSULOSIN HCL 0.4 MG CAP.ER.24H PO SCH (09:02)
[2018-04-11] MEDS: FOLIC ACID 1 MG TABLET PO SCH (09:02)
[2018-04-11] MEDS: FUROSEMIDE 20 MG TABLET PO SCH (09:02)
[2018-04-11] MEDS: INSULIN GLARGINE,HUM.REC.ANLOG 100 UNIT/ML PEN.INJCTR SQ SCH (09:05)
[2018-04-11 10:16] LABS: MEAN CORPUSCULAR HEMOGLOBIN 29.8 pg (28.0-34.0); MEAN CORPUSCULAR VOLUME 91.5 fl (80.0-100.0)
[2018-04-11] MEDS: DIGOXIN 125 MCG TABLET PO SCH (11:34)
[2018-04-11] MEDS: POLYETHYLENE GLYCOL 3350 17 GM POWD.PACK PO SCH (13:04)
[2018-04-11] MEDS: rOPINIRole HCL 1 MG TABLET PO SCH (20:10)
[2018-04-12] MEDS: HYDROcodone /APAP 5/325 1 EACH TABLET PO PRN (05:09)
[2018-04-12] MEDS: FAMOTIDINE 20 MG TABLET PO SCH (06:00)
[2018-04-12] MEDS: LEVOTHYROXINE SODIUM 50 MCG TABLET PO SCH (06:01)
[2018-04-12] MEDS: INSULIN LISPRO 100 UNIT/ML 3ML VIAL SQ SCH ×4 (07:16→20:03)
[2018-04-12] MEDS: CHOLECALCIFEROL (VIT D3) 1,000 UNIT TABLET PO SCH (08:32)
[2018-04-12] MEDS: CALCIUM CARB 500 MG TAB.CHEW PO SCH ×2 (08:33→21:00)
[2018-04-12] MEDS: DILTIAZEM HCL 120 MG CAP.ER.24H PO SCH (08:33)
[2018-04-12] MEDS: FUROSEMIDE 20 MG TABLET PO SCH (08:33)
[2018-04-12] MEDS: FOLIC ACID 1 MG TABLET PO SCH (08:33)
[2018-04-12] MEDS: predniSONE 10 MG TABLET PO SCH (08:33)
[2018-04-12] MEDS: FINASTERIDE 5 MG TABLET PO SCH (08:33)
[2018-04-12] MEDS: TAMSULOSIN HCL 0.4 MG CAP.ER.24H PO SCH (08:34)
[2018-04-12] MEDS: INSULIN GLARGINE,HUM.REC.ANLOG 100 UNIT/ML PEN.INJCTR SQ SCH (08:34)
[2018-04-12] MEDS: DIGOXIN 125 MCG TABLET PO SCH (12:35)
[2018-04-12] MEDS: POLYETHYLENE GLYCOL 3350 17 GM POWD.PACK PO SCH (12:35)
[2018-04-12] MEDS: traMADol HCL 50 MG TABLET PO PRN (18:34)
[2018-04-12] MEDS: rOPINIRole HCL 1 MG TABLET PO SCH (20:11)
[2018-04-13] MEDS: FAMOTIDINE 20 MG TABLET PO SCH (07:10)
[2018-04-13] MEDS: LEVOTHYROXINE SODIUM 50 MCG TABLET PO SCH (07:11)
[2018-04-13] MEDS: INSULIN LISPRO 100 UNIT/ML 3ML VIAL SQ SCH ×4 (08:11→20:53)
[2018-04-13] MEDS: INSULIN GLARGINE,HUM.REC.ANLOG 100 UNIT/ML PEN.INJCTR SQ SCH (09:03)
[2018-04-13] MEDS: CALCIUM CARB 500 MG TAB.CHEW PO SCH ×2 (09:12→20:52)
[2018-04-13] MEDS: DILTIAZEM HCL 120 MG CAP.ER.24H PO SCH (09:14)
[2018-04-13] MEDS: TAMSULOSIN HCL 0.4 MG CAP.ER.24H PO SCH (09:15)
[2018-04-13] MEDS: CHOLECALCIFEROL (VIT D3) 1,000 UNIT TABLET PO SCH (09:15)
[2018-04-13] MEDS: predniSONE 10 MG TABLET PO SCH (09:15)
[2018-04-13] MEDS: FINASTERIDE 5 MG TABLET PO SCH (09:15)
[2018-04-13] MEDS: FOLIC ACID 1 MG TABLET PO SCH (09:15)
[2018-04-13] MEDS: FUROSEMIDE 20 MG TABLET PO SCH (09:15)
[2018-04-13] MEDS: HYDROcodone /APAP 5/325 1 EACH TABLET PO PRN (10:06)
[2018-04-13] MEDS: POLYETHYLENE GLYCOL 3350 17 GM POWD.PACK PO SCH (11:51)
[2018-04-13] MEDS: DIGOXIN 125 MCG TABLET PO SCH (13:24)
--- NOTE | 2018-04-13 14:13 | Diagnostic Imaging Report ---
[facility]MED SURG [facility] [id number] [facility].[address] [id number] Report Submission Date: Apr 13, 2018 12:13:37 PM CDT Patient Study Name: NUBIA CAMPOVERDE Date: Apr 13, 2018 11:41:16 AM CDT Modality Type: DX Gender: M Description: LOWER EXTREMITY : [birth year] Institution: [facility] Physician: [facility]RE[facility]/MED SURG Examination: Plain film right ankle History: RT ANKLE, PAIN IN RT ANKLE TODAY. PT FELL 3 DAYS AGO (Hx) Findings: 3 views of the right ankle demonstrates osteopenia. Normal cortical margins. No fracture or dislocation. Talar dome is intact. Inferior calcaneal spur. Mild vascular calcifications. No soft tissue swelling. No joint effusion. Impression: Osteopenia and degenerative changes. No acute osseous process. Electronically signed on Apr 13, 2018 12:13:37 PM CDT by: Ricky CORTES
[2018-04-13 19:59] LABS: BASOPHILS % 0.2 (0.0-1.5); EOSINOPHILS % 0.1 % (0.0-6.8); MEAN CORPUSCULAR HEMOGLOBIN 29.6 pg (28.0-34.0); MONOCYTES % 0.6 % (0.0-11.0); NEUTROPHILS # 11.5 # k/uL (1.4-7.7)
[2018-04-13 20:06] LABS: eGFR (Non-African) > 60
[2018-04-13] MEDS: rOPINIRole HCL 1 MG TABLET PO SCH (20:51)
[2018-04-14] MEDS: LEVOTHYROXINE SODIUM 50 MCG TABLET PO SCH (06:48)
[2018-04-14] MEDS: FAMOTIDINE 20 MG TABLET PO SCH (06:48)
[2018-04-14] MEDS: INSULIN GLARGINE,HUM.REC.ANLOG 100 UNIT/ML PEN.INJCTR SQ SCH (08:35)
[2018-04-14] MEDS: INSULIN LISPRO 100 UNIT/ML 3ML VIAL SQ SCH ×4 (08:36→20:18)
[2018-04-14] MEDS: FOLIC ACID 1 MG TABLET PO SCH (08:39)
[2018-04-14] MEDS: predniSONE 10 MG TABLET PO SCH (08:39)
[2018-04-14] MEDS: DILTIAZEM HCL 120 MG CAP.ER.24H PO SCH (08:39)
[2018-04-14] MEDS: FUROSEMIDE 20 MG TABLET PO SCH (08:40)
[2018-04-14] MEDS: CALCIUM CARB 500 MG TAB.CHEW PO SCH ×2 (08:40→20:14)
[2018-04-14] MEDS: CHOLECALCIFEROL (VIT D3) 1,000 UNIT TABLET PO SCH (08:40)
[2018-04-14] MEDS: FINASTERIDE 5 MG TABLET PO SCH (08:40)
[2018-04-14] MEDS: TAMSULOSIN HCL 0.4 MG CAP.ER.24H PO SCH (08:44)
[2018-04-14] MEDS: POLYETHYLENE GLYCOL 3350 17 GM POWD.PACK PO SCH (12:22)
[2018-04-14] MEDS: DIGOXIN 125 MCG TABLET PO SCH (12:25)
[2018-04-14] MEDS: HYDROcodone /APAP 5/325 1 EACH TABLET PO PRN (20:13)
[2018-04-14] MEDS: rOPINIRole HCL 1 MG TABLET PO SCH (20:13)
[2018-04-15] MEDS: FAMOTIDINE 20 MG TABLET PO SCH (06:00)
[2018-04-15] MEDS: LEVOTHYROXINE SODIUM 50 MCG TABLET PO SCH (06:01)
[2018-04-15 06:05] LABS: BASOPHILS % 0.3 (0.0-1.5); EOSINOPHILS % 0.1 % (0.0-6.8); MEAN CORPUSCULAR HEMOGLOBIN 29.9 pg (28.0-34.0); MEAN CORPUSCULAR VOLUME 91.2 fl (80.0-100.0); MONOCYTES % 1.1 % (0.0-11.0); NEUTROPHILS # 7.8 # k/uL (1.4-7.7)
[2018-04-15 06:33] LABS: eGFR (Non-African) > 60
[2018-04-15] MEDS: INSULIN LISPRO 100 UNIT/ML 3ML VIAL SQ SCH ×4 (07:58→21:26)
--- NOTE | 2018-04-15 08:19 | Inpatient Progress Note ---
Subjective - Required Recertification Statement I anticipate X number of days because-include discharge plan: 10 - Review of Systems Subjective: Staff reports patient continues to pick at his nose and it oozes. He tells me he "can't remember not to." Objective - Exam Vitals and I&O: Vital Signs Temp 98.2 F 04/14/18 21:00 Pulse 98 H 04/14/18 21:00 Resp 16 04/14/18 21:00 BP 111/52 04/14/18 21:00 Pulse Ox 98 04/14/18 21:00 Intake & Output 04/14/18 04/14/18 04/15/18 11:59 23:59 11:59 Intake Total 400 1260 240 Balance 400 1260 240 Weight 55.338 kg Intake: Oral 400 1260 240 Other: Voiding Method Urinal Urinal # Voids 1 0 General: Alert, Oriented to Person, Oriented to Place, Oriented to Time, Cooperative, No acute distress Lungs: Clear to auscultation, Normal air movement, Speaks full Sentences Cardiovascular: Regular rate - Results Results: Laboratory Results WBC 8.60 K/ul (4.00-12.00) 04/15/18 05:30 RBC 2.68 M/ul (3.90-5.20) L 04/15/18 05:30 Hgb 8.0 g/dL (12.0-18.0) L 04/15/18 05:30 Hct 24.4 % (37.0-53.0) L 04/15/18 05:30 MCV 91.2 fl (80.0-100.0) 04/15/18 05:30 MCH 29.9 pg (28.0-34.0) 04/15/18 05:30 MCHC 32.7 g/dL (30.0-36.0) 04/15/18 05:30 RDW 21.6 % (11.3-14.3) H 04/15/18 05:30 Plt Count 30 K/mm3 (130-400) L 04/15/18 05:30 Neut % (Auto) 90.2 % (39.0-79.0) H 04/15/18 05:30 Lymph % (Auto) 7.2 % (16.0-50.0) L 04/15/18 05:30 [place] % (Auto) 1.1 % (0.0-11.0) 04/15/18 05:30 Eos % (Auto) 0.1 % (0.0-6.8) 04/15/18 05:30 Baso % (Auto) 0.3 (0.0-1.5) 04/15/18 05:30 Neut # (Auto) 7.8 # k/uL (1.4-7.7) H 04/15/18 05:30 Lymph # (Auto) 0.6 # k/uL (0.6-4.0) 04/15/18 05:30 [place] # (Auto) 0.1 # k/uL (0.0-0.9) 04/15/18 05:30 Eos # (Auto) 0.0 # k/uL (0.0-0.6) 04/15/18 05:30 Baso # (Auto) 0.0 # k/uL (0.0-0.5) 04/15/18 05:30 Reactive Lymphs % 1.0 % (0.0-5.0) 04/15/18 05:30 Reactive Lymphs # 0.1 # k/uL (0.0-0.8) 04/15/18 05:30 Sodium 131 mmol/L (136-145) L 04/15/18 05:30 Potassium 3.7 mmol/L (3.5-5.1) 04/15/18 05:30 Chloride 96 mmol/L (98-107) L 04/15/18 05:30 Carbon Dioxide 27 mmol/L (22-30) 04/15/18 05:30 BUN 21 mg/dL (9-20) H 04/15/18 05:30 Creatinine 0.90 mg/dL (0.66-1.25) 04/15/18 05:30 Estimated Creat Clear 43 04/15/18 05:30 Est GFR ( Amer) > 60 (60-) 04/15/18 05:30 Est GFR (Non-Af Amer) > 60 (60-) 04/15/18 05:30 Glucose 78 mg/dL (74-106) 04/15/18 05:30 Uric Acid 6.2 mg/dL (3.5-8.5) 04/13/18 19:25 Calcium 8.0 mg/dL (8.4-10.2) L 04/15/18 05:30 Total Bilirubin 1.0 mg/dL (0.2-1.3) 04/15/18 05:30 AST 8 U/L (15-46) L 04/15/18 05:30 ALT 28 U/L (13-69) 04/15/18 05:30 Alkaline Phosphatase 72 U/L (38-126) 04/15/18 05:30 Total Protein 5.2 g/dL (6.3-8.2) L 04/15/18 05:30 Albumin 2.8 g/dL (3.5-5.0) L 04/15/18 05:30 Assessment/Plan - Assessment/Plan (1) Weakness Status: Acute Current Visit: Yes (2) Myeloproliferative disorder Status: Chronic Current Visit: No Plan: I discussed case with DR. Jones. Patient baseline plt is 30,000. Will continue to monitor. Consider transfusion if Hgb drops to 7.5 or patient actively bleeding. Afrin and vaseline to nares. (3) Afib Status: Chronic Current Visit: Yes Qualifiers: Atrial fibrillation type: chronic Qualified Code(s): I48.2 - Chronic atrial fibrillation (4) HTN (hypertension) Status: Chronic Current Visit: No Qualifiers: Hypertension type: essential hypertension Qualified Code(s): I10 - Essential (primary) hypertension (5) Thrombocytopenia Status: Chronic Current Visit: Yes Plan: D/W Dr. Jones --- thought transfusing platelets was ok if actively bleeding. Baseline platelets is 30,000 for years. Will plan afrin and vaseline for nose bleeds. Hemoglobin below 7.5 will consider transfusion.
[2018-04-15] MEDS ORDERED: OXYMETAZOLINE HCL 0.05% NASAL SPRAY NS PRN (08:21)
[2018-04-15] MEDS: DILTIAZEM HCL 120 MG CAP.ER.24H PO SCH (09:23)
[2018-04-15] MEDS: predniSONE 10 MG TABLET PO SCH (09:23)
[2018-04-15] MEDS: FOLIC ACID 1 MG TABLET PO SCH (09:24)
[2018-04-15] MEDS: FINASTERIDE 5 MG TABLET PO SCH (09:24)
[2018-04-15] MEDS: FUROSEMIDE 20 MG TABLET PO SCH (09:24)
[2018-04-15] MEDS: CALCIUM CARB 500 MG TAB.CHEW PO SCH ×2 (09:24→20:12)
[2018-04-15] MEDS: CHOLECALCIFEROL (VIT D3) 1,000 UNIT TABLET PO SCH (09:25)
[2018-04-15] MEDS: TAMSULOSIN HCL 0.4 MG CAP.ER.24H PO SCH (09:31)
[2018-04-15] MEDS: INSULIN GLARGINE,HUM.REC.ANLOG 100 UNIT/ML PEN.INJCTR SQ SCH (10:15)
[2018-04-15] MEDS: HYDROcodone /APAP 5/325 1 EACH TABLET PO PRN ×2 (10:19→16:51)
[2018-04-15] MEDS: DIGOXIN 125 MCG TABLET PO SCH (12:29)
[2018-04-15] MEDS: POLYETHYLENE GLYCOL 3350 17 GM POWD.PACK PO SCH (12:32)
[2018-04-15] MEDS: rOPINIRole HCL 1 MG TABLET PO SCH (20:12)
[2018-04-15] MEDS: traMADol HCL 50 MG TABLET PO PRN (20:12)
[2018-04-16] MEDS: LEVOTHYROXINE SODIUM 50 MCG TABLET PO SCH (06:04)
[2018-04-16] MEDS: HYDROcodone /APAP 5/325 1 EACH TABLET PO PRN ×2 (06:04→21:09)
[2018-04-16] MEDS: FAMOTIDINE 20 MG TABLET PO SCH (06:05)
[2018-04-16] MEDS: FINASTERIDE 5 MG TABLET PO SCH (10:30)
[2018-04-16] MEDS: FUROSEMIDE 20 MG TABLET PO SCH (10:30)
[2018-04-16] MEDS: FOLIC ACID 1 MG TABLET PO SCH (10:30)
[2018-04-16] MEDS: TAMSULOSIN HCL 0.4 MG CAP.ER.24H PO SCH (10:30)
[2018-04-16] MEDS: CHOLECALCIFEROL (VIT D3) 1,000 UNIT TABLET PO SCH (10:30)
[2018-04-16] MEDS: CALCIUM CARB 500 MG TAB.CHEW PO SCH ×2 (10:30→21:09)
[2018-04-16] MEDS: predniSONE 10 MG TABLET PO SCH (10:30)
[2018-04-16] MEDS: DILTIAZEM HCL 120 MG CAP.ER.24H PO SCH (10:30)
[2018-04-16] MEDS: INSULIN GLARGINE,HUM.REC.ANLOG 100 UNIT/ML PEN.INJCTR SQ SCH (10:31)
[2018-04-16] MEDS: INSULIN LISPRO 100 UNIT/ML 3ML VIAL SQ SCH ×4 (10:37→21:09)
[2018-04-16] MEDS: traMADol HCL 50 MG TABLET PO PRN (10:52)
[2018-04-16] MEDS: POLYETHYLENE GLYCOL 3350 17 GM POWD.PACK PO SCH (12:26)
[2018-04-16] MEDS: DIGOXIN 125 MCG TABLET PO SCH (12:27)
[2018-04-16] MEDS: rOPINIRole HCL 1 MG TABLET PO SCH (21:09)
[2018-04-17] MEDS: FAMOTIDINE 20 MG TABLET PO SCH (06:01)
[2018-04-17] MEDS: LEVOTHYROXINE SODIUM 50 MCG TABLET PO SCH (06:02)
[2018-04-17] MEDS: INSULIN LISPRO 100 UNIT/ML 3ML VIAL SQ SCH ×4 (07:37→20:51)
[2018-04-17] MEDS: FUROSEMIDE 20 MG TABLET PO SCH (08:46)
[2018-04-17] MEDS: CHOLECALCIFEROL (VIT D3) 1,000 UNIT TABLET PO SCH (08:46)
[2018-04-17] MEDS: FINASTERIDE 5 MG TABLET PO SCH (08:46)
[2018-04-17] MEDS: FOLIC ACID 1 MG TABLET PO SCH (08:46)
[2018-04-17] MEDS: CALCIUM CARB 500 MG TAB.CHEW PO SCH ×2 (08:46→20:47)
[2018-04-17] MEDS: traMADol HCL 50 MG TABLET PO PRN (08:46)
[2018-04-17] MEDS: predniSONE 10 MG TABLET PO SCH (08:46)
[2018-04-17] MEDS: TAMSULOSIN HCL 0.4 MG CAP.ER.24H PO SCH (08:46)
[2018-04-17] MEDS: DILTIAZEM HCL 120 MG CAP.ER.24H PO SCH (08:46)
[2018-04-17] MEDS: INSULIN GLARGINE,HUM.REC.ANLOG 100 UNIT/ML PEN.INJCTR SQ SCH (08:53)
[2018-04-17] MEDS: DIGOXIN 125 MCG TABLET PO SCH (11:25)
[2018-04-17] MEDS: POLYETHYLENE GLYCOL 3350 17 GM POWD.PACK PO SCH (11:25)
[2018-04-17] MEDS: rOPINIRole HCL 1 MG TABLET PO SCH (20:47)
[2018-04-18] MEDS: LEVOTHYROXINE SODIUM 50 MCG TABLET PO SCH (06:09)
[2018-04-18] MEDS: FAMOTIDINE 20 MG TABLET PO SCH (06:10)
[2018-04-18] MEDS: HYDROcodone /APAP 5/325 1 EACH TABLET PO PRN ×2 (07:34→16:32)
[2018-04-18] MEDS: INSULIN LISPRO 100 UNIT/ML 3ML VIAL SQ SCH ×4 (08:29→20:31)
[2018-04-18] MEDS: INSULIN GLARGINE,HUM.REC.ANLOG 100 UNIT/ML PEN.INJCTR SQ SCH (08:30)
[2018-04-18] MEDS: CALCIUM CARB 500 MG TAB.CHEW PO SCH ×2 (08:31→20:32)
[2018-04-18] MEDS: DILTIAZEM HCL 120 MG CAP.ER.24H PO SCH (08:31)
[2018-04-18] MEDS: FUROSEMIDE 20 MG TABLET PO SCH (08:31)
[2018-04-18] MEDS: CHOLECALCIFEROL (VIT D3) 1,000 UNIT TABLET PO SCH (08:31)
[2018-04-18] MEDS: FOLIC ACID 1 MG TABLET PO SCH (08:31)
[2018-04-18] MEDS: FINASTERIDE 5 MG TABLET PO SCH (08:31)
[2018-04-18] MEDS: predniSONE 10 MG TABLET PO SCH (08:31)
[2018-04-18] MEDS: TAMSULOSIN HCL 0.4 MG CAP.ER.24H PO SCH (08:32)
[2018-04-18] MEDS: POLYETHYLENE GLYCOL 3350 17 GM POWD.PACK PO SCH (12:08)
[2018-04-18] MEDS: DIGOXIN 125 MCG TABLET PO SCH (12:09)
[2018-04-18] MEDS: traMADol HCL 50 MG TABLET PO PRN (20:28)
[2018-04-18] MEDS: rOPINIRole HCL 1 MG TABLET PO SCH (20:32)
[2018-04-19] MEDS: HYDROcodone /APAP 5/325 1 EACH TABLET PO PRN ×2 (04:18→12:58)
[2018-04-19] MEDS: LEVOTHYROXINE SODIUM 50 MCG TABLET PO SCH (05:59)
[2018-04-19] MEDS: FAMOTIDINE 20 MG TABLET PO SCH (05:59)
[2018-04-19] MEDS: INSULIN LISPRO 100 UNIT/ML 3ML VIAL SQ SCH ×4 (07:30→21:14)
[2018-04-19] MEDS: TAMSULOSIN HCL 0.4 MG CAP.ER.24H PO SCH (09:23)
[2018-04-19] MEDS: FINASTERIDE 5 MG TABLET PO SCH (09:23)
[2018-04-19] MEDS: CHOLECALCIFEROL (VIT D3) 1,000 UNIT TABLET PO SCH (09:23)
[2018-04-19] MEDS: FUROSEMIDE 20 MG TABLET PO SCH (09:23)
[2018-04-19] MEDS: FOLIC ACID 1 MG TABLET PO SCH (09:23)
[2018-04-19] MEDS: CALCIUM CARB 500 MG TAB.CHEW PO SCH ×2 (09:23→21:12)
[2018-04-19] MEDS: predniSONE 10 MG TABLET PO SCH (09:23)
[2018-04-19] MEDS: DILTIAZEM HCL 120 MG CAP.ER.24H PO SCH (09:23)
[2018-04-19] MEDS: INSULIN GLARGINE,HUM.REC.ANLOG 100 UNIT/ML PEN.INJCTR SQ SCH (09:28)
[2018-04-19] MEDS: traMADol HCL 50 MG TABLET PO PRN (11:33)
[2018-04-19] MEDS: POLYETHYLENE GLYCOL 3350 17 GM POWD.PACK PO SCH (11:34)
[2018-04-19] MEDS: DIGOXIN 125 MCG TABLET PO SCH (12:31)
[2018-04-19 12:48] LABS: eGFR (Non-African) > 60
--- NOTE | 2018-04-19 14:48 | Diagnostic Imaging Report ---
[facility] [address] [facility].[address] [address] Report Submission Date: Apr 19, 2018 2:20:57 PM CDT Patient Study Name: NUBIA CAMPOVERDE Date: Apr 19, 2018 1:50:37 PM CDT Modality Type: DX Gender: M Description: CHEST : [birth year] Institution: [facility] Physician: [facility] PA and lateral chest History: Leukocytosis PA and lateral chest dated April 19, 2018 is without prior radiographs for comparison. Moderate-sized bilateral pleural effusions are present with associated bibasilar atelectasis and/or infiltrate. The heart is enlarged and aortic atherosclerosis is present. There is mild pulmonary venous congestion. Impression: Cardiomegaly with mild pulmonary venous congestion. Moderate-sized bilateral pleural effusions are present and there is associated bibasilar atelectasis and/or infiltrate. Electronically signed on Apr 19, 2018 2:20:57 PM CDT by: Sweta CORTES
[2018-04-19] MEDS: fentaNYL 12 MCG 1 EACH PATCH.TD72 TD SCH (15:47)
[2018-04-19 16:34] LABS: APPEARANCE,URINE ORANGE (CLEAR); COLOR,URINE YELLOW (YELLOW)
[2018-04-19 16:35] LABS: OCCULT BLOOD,URINE NEGATIVE (NEGATIVE); PH URINE 5.5 (5.0 - 8.0)
[2018-04-19] MEDS: rOPINIRole HCL 1 MG TABLET PO SCH (21:11)
[2018-04-20] MEDS: FAMOTIDINE 20 MG TABLET PO SCH (06:19)
[2018-04-20] MEDS: LEVOTHYROXINE SODIUM 50 MCG TABLET PO SCH (06:20)
[2018-04-20] MEDS: INSULIN LISPRO 100 UNIT/ML 3ML VIAL SQ SCH ×4 (08:57→20:36)
[2018-04-20] MEDS: INSULIN GLARGINE,HUM.REC.ANLOG 100 UNIT/ML PEN.INJCTR SQ SCH (09:00)
[2018-04-20] MEDS: DILTIAZEM HCL 120 MG CAP.ER.24H PO SCH (09:01)
[2018-04-20] MEDS: HYDROcodone /APAP 5/325 1 EACH TABLET PO PRN ×3 (09:02→22:41)
[2018-04-20] MEDS: predniSONE 10 MG TABLET PO SCH (09:02)
[2018-04-20] MEDS: CHOLECALCIFEROL (VIT D3) 1,000 UNIT TABLET PO SCH (09:03)
[2018-04-20] MEDS: FINASTERIDE 5 MG TABLET PO SCH (09:03)
[2018-04-20] MEDS: TAMSULOSIN HCL 0.4 MG CAP.ER.24H PO SCH (09:03)
[2018-04-20] MEDS: CALCIUM CARB 500 MG TAB.CHEW PO SCH ×2 (09:04→20:35)
[2018-04-20] MEDS: FUROSEMIDE 20 MG TABLET PO SCH (09:05)
[2018-04-20] MEDS: FOLIC ACID 1 MG TABLET PO SCH (09:10)
[2018-04-20] MEDS: DIGOXIN 125 MCG TABLET PO SCH (11:46)
[2018-04-20] MEDS: POLYETHYLENE GLYCOL 3350 17 GM POWD.PACK PO SCH (11:53)
[2018-04-20] MEDS: traMADol HCL 50 MG TABLET PO PRN (20:34)
[2018-04-20] MEDS: rOPINIRole HCL 1 MG TABLET PO SCH (20:35)
[2018-04-21 06:16] LABS: MEAN CORPUSCULAR HEMOGLOBIN 29.9 pg (28.0-34.0); MEAN CORPUSCULAR VOLUME 93.1 fl (80.0-100.0)
[2018-04-21] MEDS: LEVOTHYROXINE SODIUM 50 MCG TABLET PO SCH (06:16)
[2018-04-21] MEDS: FAMOTIDINE 20 MG TABLET PO SCH (06:16)
[2018-04-21] MEDS: HYDROcodone /APAP 5/325 1 EACH TABLET PO PRN (06:17)
[2018-04-21 06:44] LABS: MEAN CORPUSCULAR VOLUME 93.8 fl (80.0-100.0)
[2018-04-21] MEDS: INSULIN LISPRO 100 UNIT/ML 3ML VIAL SQ SCH ×4 (09:24→20:42)
[2018-04-21] MEDS: INSULIN GLARGINE,HUM.REC.ANLOG 100 UNIT/ML PEN.INJCTR SQ SCH (09:26)
[2018-04-21] MEDS: FUROSEMIDE 20 MG TABLET PO SCH (09:26)
[2018-04-21] MEDS: CHOLECALCIFEROL (VIT D3) 1,000 UNIT TABLET PO SCH (09:26)
[2018-04-21] MEDS: predniSONE 10 MG TABLET PO SCH (09:26)
[2018-04-21] MEDS: DILTIAZEM HCL 120 MG CAP.ER.24H PO SCH (09:26)
[2018-04-21] MEDS: CALCIUM CARB 500 MG TAB.CHEW PO SCH ×2 (09:26→20:43)
[2018-04-21] MEDS: FOLIC ACID 1 MG TABLET PO SCH (09:26)
[2018-04-21] MEDS: FINASTERIDE 5 MG TABLET PO SCH (09:26)
[2018-04-21] MEDS: TAMSULOSIN HCL 0.4 MG CAP.ER.24H PO SCH (09:26)
[2018-04-21] MEDS: DIGOXIN 125 MCG TABLET PO SCH (11:59)
[2018-04-21] MEDS: POLYETHYLENE GLYCOL 3350 17 GM POWD.PACK PO SCH (11:59)
[2018-04-21] MEDS ORDERED: 0.9 % SODIUM CHLORIDE 250 ML IV ONE (17:38)
[2018-04-21] MEDS: rOPINIRole HCL 1 MG TABLET PO SCH (20:43)
[2018-04-22] MEDS: HYDROcodone /APAP 5/325 1 EACH TABLET PO PRN ×3 (00:10→13:34)
[2018-04-22] MEDS: FAMOTIDINE 20 MG TABLET PO SCH (06:01)
[2018-04-22] MEDS: LEVOTHYROXINE SODIUM 50 MCG TABLET PO SCH (06:02)
[2018-04-22] MEDS: INSULIN LISPRO 100 UNIT/ML 3ML VIAL SQ SCH ×4 (07:56→21:02)
[2018-04-22] MEDS ORDERED: fentaNYL 12 MCG 1 EACH PATCH.TD72 TD SCH (09:00)
[2018-04-22] MEDS: fentaNYL 12 MCG 1 EACH PATCH.TD72 TD SCH (09:54)
[2018-04-22] MEDS: traMADol HCL 50 MG TABLET PO PRN (09:55)
[2018-04-22] MEDS: TAMSULOSIN HCL 0.4 MG CAP.ER.24H PO SCH (09:55)
[2018-04-22] MEDS: predniSONE 10 MG TABLET PO SCH (09:55)
[2018-04-22] MEDS: DILTIAZEM HCL 120 MG CAP.ER.24H PO SCH (09:55)
[2018-04-22] MEDS: FUROSEMIDE 20 MG TABLET PO SCH (09:55)
[2018-04-22] MEDS: FINASTERIDE 5 MG TABLET PO SCH (09:55)
[2018-04-22] MEDS: CHOLECALCIFEROL (VIT D3) 1,000 UNIT TABLET PO SCH (09:55)
[2018-04-22] MEDS: FOLIC ACID 1 MG TABLET PO SCH (09:55)
[2018-04-22] MEDS: CALCIUM CARB 500 MG TAB.CHEW PO SCH ×2 (09:56→21:00)
[2018-04-22] MEDS: INSULIN GLARGINE,HUM.REC.ANLOG 100 UNIT/ML PEN.INJCTR SQ SCH (09:59)
[2018-04-22] MEDS: DIGOXIN 125 MCG TABLET PO SCH (11:36)
[2018-04-22] MEDS: POLYETHYLENE GLYCOL 3350 17 GM POWD.PACK PO SCH (11:36)
[2018-04-22] MEDS: rOPINIRole HCL 1 MG TABLET PO SCH (21:01)
[2018-04-23] MEDS: LEVOTHYROXINE SODIUM 50 MCG TABLET PO SCH (06:03)
[2018-04-23] MEDS: FAMOTIDINE 20 MG TABLET PO SCH (06:03)
[2018-04-23] MEDS: INSULIN LISPRO 100 UNIT/ML 3ML VIAL SQ SCH ×4 (07:45→21:57)
[2018-04-23] MEDS: FOLIC ACID 1 MG TABLET PO SCH (08:38)
[2018-04-23] MEDS: FUROSEMIDE 20 MG TABLET PO SCH (08:38)
[2018-04-23] MEDS: DILTIAZEM HCL 120 MG CAP.ER.24H PO SCH (08:38)
[2018-04-23] MEDS: HYDROcodone /APAP 5/325 1 EACH TABLET PO PRN (08:38)
[2018-04-23] MEDS: predniSONE 10 MG TABLET PO SCH (08:38)
[2018-04-23] MEDS: FINASTERIDE 5 MG TABLET PO SCH (08:38)
[2018-04-23] MEDS: TAMSULOSIN HCL 0.4 MG CAP.ER.24H PO SCH (08:38)
[2018-04-23] MEDS: CHOLECALCIFEROL (VIT D3) 1,000 UNIT TABLET PO SCH (08:39)
[2018-04-23] MEDS: CALCIUM CARB 500 MG TAB.CHEW PO SCH ×2 (08:39→21:57)
[2018-04-23] MEDS: INSULIN GLARGINE,HUM.REC.ANLOG 100 UNIT/ML PEN.INJCTR SQ SCH (08:42)
[2018-04-23 09:47] LABS: MEAN CORPUSCULAR HEMOGLOBIN 31.2 pg (28.0-34.0); MEAN CORPUSCULAR VOLUME 106.4 fl (80.0-100.0)
[2018-04-23 10:59] LABS: eGFR (Non-African) > 60
[2018-04-23] MEDS: POLYETHYLENE GLYCOL 3350 17 GM POWD.PACK PO SCH (11:05)
[2018-04-23] MEDS: DIGOXIN 125 MCG TABLET PO SCH (11:06)
[2018-04-23] MEDS: traMADol HCL 50 MG TABLET PO PRN (13:39)
[2018-04-23] MEDS: rOPINIRole HCL 1 MG TABLET PO SCH (21:57)
[2018-04-24] MEDS: LEVOTHYROXINE SODIUM 50 MCG TABLET PO SCH (06:12)
[2018-04-24] MEDS: FAMOTIDINE 20 MG TABLET PO SCH (06:12)
[2018-04-24] MEDS: traMADol HCL 50 MG TABLET PO PRN ×2 (06:14→13:09)
--- NOTE | 2018-04-24 07:53 | Inpatient Progress Note ---
Subjective - Required Recertification Statement I anticipate X number of days because-include discharge plan: 2 - Review of Systems Subjective: Patient not tolerating therapy very well. Family considering moving to [facility] later this week. I started fentanyl patch last week due to worsening pain. Helping some but still in a lot of pain. No side effects. Objective - Exam Vitals and I&O: Vital Signs Temp 97.6 F 04/23/18 21:00 Pulse 107 H 04/23/18 21:00 Resp 18 04/23/18 21:00 BP 113/67 04/23/18 21:00 Pulse Ox 96 04/23/18 21:00 Intake & Output 04/23/18 04/23/18 04/24/18 11:59 23:59 11:59 Intake Total 180 1220 80 Output Total 200 50 Balance -20 1170 80 Intake: Oral 180 1220 80 Output: Urine 200 50 Other: Voiding Method Urinal Urinal # Voids 1 1 # Bowel Movements 1 General: Alert, Oriented to Person, Oriented to Place, Oriented to Time, Cooperative, Mild distress Lungs: Clear to auscultation, Normal air movement, Speaks full Sentences Cardiovascular: Regular rate - Results Results: Laboratory Results WBC 23.00 K/ul (4.00-12.00) H 04/23/18 09:39 RBC 2.72 M/ul (3.90-5.20) L 04/23/18 09:39 Hgb 8.5 g/dL (12.0-18.0) L 04/23/18 09:39 Hct 28.9 % (37.0-53.0) L 04/23/18 09:39 MCV 106.4 fl (80.0-100.0) H 04/23/18 09:39 MCH 31.2 pg (28.0-34.0) 04/23/18 09:39 MCHC 29.3 g/dL (30.0-36.0) L 04/23/18 09:39 RDW 23.2 % (11.3-14.3) H 04/23/18 09:39 Plt Count 31 K/mm3 (130-400) L 04/23/18 09:39 Neut % (Auto) 90.2 % (39.0-79.0) H 04/15/18 05:30 Lymph % (Auto) 7.2 % (16.0-50.0) L 04/15/18 05:30 [place] % (Auto) 1.1 % (0.0-11.0) 04/15/18 05:30 Eos % (Auto) 0.1 % (0.0-6.8) 04/15/18 05:30 Baso % (Auto) 0.3 (0.0-1.5) 04/15/18 05:30 Neut # (Auto) 7.8 # k/uL (1.4-7.7) H 04/15/18 05:30 Lymph # (Auto) 0.6 # k/uL (0.6-4.0) 04/15/18 05:30 [place] # (Auto) 0.1 # k/uL (0.0-0.9) 04/15/18 05:30 Eos # (Auto) 0.0 # k/uL (0.0-0.6) 04/15/18 05:30 Baso # (Auto) 0.0 # k/uL (0.0-0.5) 04/15/18 05:30 Reactive Lymphs % 1.0 % (0.0-5.0) 04/15/18 05:30 Reactive Lymphs # 0.1 # k/uL (0.0-0.8) 04/15/18 05:30 Sodium 126 mmol/L (136-145) L 04/23/18 09:39 Potassium 4.5 mmol/L (3.5-5.1) 04/23/18 09:39 Chloride 91 mmol/L (98-107) L 04/23/18 09:39 Carbon Dioxide 25 mmol/L (22-30) 04/23/18 09:39 BUN 27 mg/dL (9-20) H 04/23/18 09:39 Creatinine 0.80 mg/dL (0.66-1.25) 04/23/18 09:39 Estimated Creat Clear 51 04/23/18 09:39 Est GFR ( Amer) > 60 (60-) 04/23/18 09:39 Est GFR (Non-Af Amer) > 60 (60-) 04/23/18 09:39 Glucose 194 mg/dL (74-106) H 04/23/18 09:39 Uric Acid 6.2 mg/dL (3.5-8.5) 04/13/18 19:25 Calcium 8.7 mg/dL (8.4-10.2) 04/23/18 09:39 Total Bilirubin 1.0 mg/dL (0.2-1.3) 04/15/18 05:30 AST 8 U/L (15-46) L 04/15/18 05:30 ALT 28 U/L (13-69) 04/15/18 05:30 Alkaline Phosphatase 72 U/L (38-126) 04/15/18 05:30 Total Protein 5.2 g/dL (6.3-8.2) L 04/15/18 05:30 Albumin 2.8 g/dL (3.5-5.0) L 04/15/18 05:30 Urine Color Yellow (YELLOW) 04/19/18 Unknown Urine Appearance [place] (CLEAR) 04/19/18 Unknown Urine pH 5.5 (5.0 - 8.0) 04/19/18 Unknown Ur Specific [place] 1.015 (1.010-1.030) 04/19/18 Unknown Urine Protein Negative mg/dL (NEGATIVE) 04/19/18 Unknown Urine Ketones 1+ mg/dL (NEGATIVE) H 04/19/18 Unknown Urine Occult Blood Negative (NEGATIVE) 04/19/18 Unknown Urine Nitrite Negative (NEGATIVE) 04/19/18 Unknown Urine Bilirubin Negative (NEGATIVE) 04/19/18 Unknown Urine Urobilinogen 1.0 Eu (0.2-1.0) 04/19/18 Unknown Ur Leukocyte Esterase Negative (NEGATIVE) 04/19/18 Unknown Urine Glucose Trace mg/dL (NEGATIVE) 04/19/18 Unknown Assessment/Plan - Assessment/Plan (1) Weakness Status: Acute Current Visit: Yes (2) Myeloproliferative disorder Status: Chronic Current Visit: No Plan: Labs are stable. (3) Afib Status: Chronic Current Visit: Yes Qualifiers: Atrial fibrillation type: chronic Qualified Code(s): I48.2 - Chronic atrial fibrillation (4) HTN (hypertension) Status: Chronic Current Visit: No Qualifiers: Hypertension type: essential hypertension Qualified Code(s): I10 - Essential (primary) hypertension (5) Thrombocytopenia Status: Chronic Current Visit: Yes (6) Chronic pain Status: Chronic Current Visit: Yes Qualifiers: Chronic pain type: other chronic pain Qualified Code(s): G89.29 - Other chronic pain Plan: Will increase fentanyl to 25 mcg.
[2018-04-24] MEDS: INSULIN LISPRO 100 UNIT/ML 3ML VIAL SQ SCH ×4 (08:36→20:51)
[2018-04-24] MEDS: DILTIAZEM HCL 120 MG CAP.ER.24H PO SCH (08:37)
[2018-04-24] MEDS: predniSONE 10 MG TABLET PO SCH (08:37)
[2018-04-24] MEDS: TAMSULOSIN HCL 0.4 MG CAP.ER.24H PO SCH (08:38)
[2018-04-24] MEDS: FUROSEMIDE 20 MG TABLET PO SCH (08:38)
[2018-04-24] MEDS: FOLIC ACID 1 MG TABLET PO SCH (08:38)
[2018-04-24] MEDS: FINASTERIDE 5 MG TABLET PO SCH (08:39)
[2018-04-24] MEDS: CALCIUM CARB 500 MG TAB.CHEW PO SCH ×2 (08:39→20:50)
[2018-04-24] MEDS: CHOLECALCIFEROL (VIT D3) 1,000 UNIT TABLET PO SCH (08:39)
[2018-04-24] MEDS ORDERED: fentaNYL 25 MCG PATCH TD SCH (09:00)
[2018-04-24] MEDS: INSULIN GLARGINE,HUM.REC.ANLOG 100 UNIT/ML PEN.INJCTR SQ SCH (09:05)
[2018-04-24] MEDS: POLYETHYLENE GLYCOL 3350 17 GM POWD.PACK PO SCH (11:52)
[2018-04-24] MEDS: DIGOXIN 125 MCG TABLET PO SCH (11:53)
[2018-04-24] MEDS: HYDROcodone /APAP 5/325 1 EACH TABLET PO PRN (20:49)
[2018-04-24] MEDS: rOPINIRole HCL 1 MG TABLET PO SCH (20:49)
[2018-04-25] MEDS: traMADol HCL 50 MG TABLET PO PRN ×2 (01:40→10:16)
[2018-04-25] MEDS: HYDROcodone /APAP 5/325 1 EACH TABLET PO PRN (05:15)
[2018-04-25] MEDS: FAMOTIDINE 20 MG TABLET PO SCH (06:04)
[2018-04-25] MEDS: LEVOTHYROXINE SODIUM 50 MCG TABLET PO SCH (06:04)
[2018-04-25] MEDS ORDERED: DEXTROSE 50% 50 ML DISP.SYRIN IVP ONE (10:00)
[2018-04-25] MEDS ORDERED: GLUCAGON,HUMAN RECOMBINANT 1 MG/ML VIAL IVP ONE (10:00)
[2018-04-25] MEDS: INSULIN LISPRO 100 UNIT/ML 3ML VIAL SQ SCH ×4 (10:14→20:56)
[2018-04-25] MEDS: INSULIN GLARGINE,HUM.REC.ANLOG 100 UNIT/ML PEN.INJCTR SQ SCH (10:15)
[2018-04-25] MEDS: CHOLECALCIFEROL (VIT D3) 1,000 UNIT TABLET PO SCH (10:16)
[2018-04-25] MEDS: predniSONE 10 MG TABLET PO SCH (10:16)
[2018-04-25] MEDS: FOLIC ACID 1 MG TABLET PO SCH (10:16)
[2018-04-25] MEDS: FUROSEMIDE 20 MG TABLET PO SCH (10:16)
[2018-04-25] MEDS: DILTIAZEM HCL 120 MG CAP.ER.24H PO SCH (10:16)
[2018-04-25] MEDS: FINASTERIDE 5 MG TABLET PO SCH (10:16)
[2018-04-25] MEDS: TAMSULOSIN HCL 0.4 MG CAP.ER.24H PO SCH (10:17)
[2018-04-25] MEDS: CALCIUM CARB 500 MG TAB.CHEW PO SCH ×2 (10:17→20:51)
[2018-04-25] MEDS: POLYETHYLENE GLYCOL 3350 17 GM POWD.PACK PO SCH (11:00)
[2018-04-25] MEDS: DIGOXIN 125 MCG TABLET PO SCH (12:54)
[2018-04-25] MEDS: rOPINIRole HCL 1 MG TABLET PO SCH (20:50)
[2018-04-26] MEDS: HYDROcodone /APAP 5/325 1 EACH TABLET PO PRN (05:37)
[2018-04-26] MEDS: FAMOTIDINE 20 MG TABLET PO SCH (06:05)
[2018-04-26] MEDS: LEVOTHYROXINE SODIUM 50 MCG TABLET PO SCH (06:06)
[2018-04-26] MEDS ORDERED: DEXTROSE 50% 50 ML DISP.SYRIN IVP ONE (07:22)
[2018-04-26] MEDS ORDERED: GLUCAGON,HUMAN RECOMBINANT 1 MG/ML VIAL ONE (07:27)
[2018-04-26] MEDS: INSULIN LISPRO 100 UNIT/ML 3ML VIAL SQ SCH (07:49)
--- NOTE | 2018-04-26 08:28 | Discharge Summary ---
Discharge Summary - Discharge Sumary History of Present Illness: Patient admitted to [facility] after a 2nd fall in 2 weeks at home. He suffered a T12 compression fracture and a mild L2 compression fracture. 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 He has Afib and was noted to have RVR. DR. Sidhu (his PCP) discontinued lisinopril and started a CCB for better rate control in addition to his digoxin. Dr. Eric was involved in his serena tology problems. He gave permission for him to be off his Jakafi (trying to build up platelets) while in SNF. 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 Sodium was 128 on admission - resolved after IV fluids. He has been on tramadol and [place] at home for pain from his 1st fall. Family and therapy felt he was too weak to return home and his is unable to care for him so he is being admitted SNF for endurance training. Condition at Discharge: Stable Home Medications: Ambulatory Orders Medication Instructions Recorded Finasteride 5 mg PO DAILY 11/28/15 Levothyroxine Sodium [Synthroid] 125 mcg PO 0700 11/28/15 Tamsulosin HCl 0.4 mg PO DAILY 11/28/15 Tramadol HCl [Ultram] 50 mg PO QID PRN 09/06/17 Acetaminophen [Tylenol Extra 1,000 mg PO Q6H PRN 04/10/18 Strength] Furosemide [Lasix] 20 mg PO DAILY 04/24/18 Ruxolitinib Phosphate [Jakafi] 5 mg PO BID 04/24/18 predniSONE [Deltasone] 10 mg PO DAILY 04/24/18 Digoxin [Lanoxin] 62.5 mcg PO 12 #30 tablet 04/26/18 Diltiazem HCl [Diltiazem 24Hr Cd] 120 mg PO DAILY #30 cap.er.24h 04/26/18 Polyethylene Glycol 3350 [Miralax] 17 gm PO 1100 powd.pack 04/26/18 Consultations this Visit: None Procedures this Visit: None Allergies/Adverse Reactions: Allergies Allergy/AdvReac Type Severity Reaction Status Date / Time Penicillins Allergy Verified 04/24/18 01:20 Sulfa (Sulfonamide Allergy Verified 04/24/18 01:20 Antibiotics) Patient Problems: Current Active Problems Problem Status Onset Weakness Acute Afib Chronic Chronic pain Chronic Thrombocytopenia Chronic Discharge Summary: Patient was admitted to SNF for rehab after a fall and suffering compression fractures of T12 and L2. He continued to be weak and therapy simply wore him out. Labs remained stable from his labs at [facility]. Several times the patient and his family inquired about hospice as patient felt he was ready to . He was transferred to [facility] care. Once family gets into town, they will likely ask for hospice. Hospital Course: Discharge Dx: Weakness. T12 and L2 compression fractures. myleoproliferative disorder with ITP. DM. Afib. HTN. Disposition - [facility]
[2018-04-26] MEDS: FOLIC ACID 1 MG TABLET PO SCH (09:15)
[2018-04-26] MEDS: predniSONE 10 MG TABLET PO SCH (09:15)
[2018-04-26] MEDS: DILTIAZEM HCL 120 MG CAP.ER.24H PO SCH (09:15)
[2018-04-26] MEDS: INSULIN GLARGINE,HUM.REC.ANLOG 100 UNIT/ML PEN.INJCTR SQ SCH (09:15)
[2018-04-26] MEDS: CALCIUM CARB 500 MG TAB.CHEW PO SCH (09:15)
[2018-04-26] MEDS: FINASTERIDE 5 MG TABLET PO SCH (09:15)
[2018-04-26] MEDS: TAMSULOSIN HCL 0.4 MG CAP.ER.24H PO SCH (09:15)
[2018-04-26] MEDS: CHOLECALCIFEROL (VIT D3) 1,000 UNIT TABLET PO SCH (09:15)
[2018-04-26] MEDS: FUROSEMIDE 20 MG TABLET PO SCH (09:15)
[2018-04-26 09:29] VITALS: BP 116/63
== END 2018-04-26 10:51 | DRG 948 ==
LOC: SOUTH 14:48
PROVIDERS: ADMIT Family Medicine; ATTEND Family Medicine
DX: R53.1 Weakness (principal); C94.6 Myelodysplastic disease, not elsewhere classified; M48.55XD Collapsed vertebra, not elsewhere classified, thoracolumbar region, subsequent encounter for fracture with routine healing; E11.9 Type 2 diabetes mellitus without complications; I48.91 Unspecified atrial fibrillation; I10 Essential (primary) hypertension
CPT/HCPCS: 36415; 71046; 73610; 80048; 80053; 81002; 84550; 85025; 85027; 87086; 97110; 97112; 97116; 97165; 97530; 97535; A9270; J1610; J1815; J7050; J7512; S1016

== ENCOUNTER 2018-04-26 11:05 | Inpatient (IN) | payer SELFPAY ==
[2018-04-26 09:29] VITALS: BP 116/63
== END 2018-04-28 19:00 | disposition expired | DRG 293 ==
LOC: ICF 11:05
PROVIDERS: ADMIT Family Medicine; ATTEND Family Medicine
DX: I50.9 Heart failure, unspecified (principal)